=== PATIENT | male | born 1960 | race Native Hawaiian/Other Pacific Islander ===

== ENCOUNTER 2016-07-15 13:55 | Outpatient (CLI) | payer BC ==
[~2016-07-15 13:55] MED LIST: ASA LOW STR81 MG PO; B-650 MG PO; BENICAR20 MG PO; CIPRO500 MG PO; LIPITOR10 MG PO; OMEPRAZOLE20 M1 OR; ZOFRAN8 MG OR
== END 2016-07-15 19:23 | disposition home or self-care (01) ==
LOC: RAD 13:55
DX: J40 Bronchitis, not specified as acute or chronic (principal)

== ENCOUNTER 2016-07-18 09:50 | Observation (INO) | payer BC ==
[~2016-07-18] VITALS: Ht 162.6 cm; Wt 91.2 kg
[2016-07-18 12:02] LABS: PLATELET COUNT 272 K/uL (142-355)
[2016-07-18 12:16] LABS: SODIUM 137 mmol/L (136-145)
[2016-07-18 14:29] VITALS: BP 137/88; TEMP 98.7; Ht 162.6 cm; Wt 91.2 kg
[2016-07-18 16:00] VITALS: BP 155/75; TEMP 98.2
[2016-07-18 20:00] VITALS: BP 148/81; TEMP 98.3
[2016-07-19] VITALS: BP 142/79; TEMP 98.1
[2016-07-19 04:00] VITALS: BP 147/78; TEMP 98.1
[2016-07-19 08:00] VITALS: BP 168/72; TEMP 98
[2016-07-19 12:00] VITALS: BP 154/70; TEMP 97.9
[2016-07-19 16:00] VITALS: BP 151/63; TEMP 98.4
[2016-07-19 20:00] VITALS: BP 131/63; TEMP 98.2
[2016-07-20] VITALS: BP 128/70; TEMP 97.7
[2016-07-20 04:00] VITALS: BP 140/71; TEMP 97.6
[2016-07-20 08:00] VITALS: BP 137/83; TEMP 98.2
[2016-07-20 12:00] VITALS: BP 141/71; TEMP 99.2
[2016-07-20 15:10] LABS: PLATELET COUNT 332 K/uL (142-355)
[2016-07-20 15:25] LABS: POTASSIUM 4.4 mmol/L (3.6-5.2)
[2016-07-20 16:00] VITALS: BP 138/82; TEMP 98.1
--- NOTE | 2016-07-20 17:15 | NUR ---
IV D/C'd. DISCHARGE INSTRUCTIONS SIGNED AND GIVEN. Pt. EXIT OUT OF FRONT ENTRANCE AMBULATING. NO DISTRESS OBSERVED.
== END 2016-07-20 17:15 | disposition home or self-care (01) ==
LOC: MED/SURG 09:50
PROVIDERS: Emergency Medicine; ADMIT Internal Medicine
DX: J18.8 Other pneumonia, unspecified organism (principal); J45.998 Other asthma; R00.0 Tachycardia, unspecified
CPT/HCPCS: 36415; 80053; 82805; 85027; 86738; 87040; 87070; 87205; 87804; 93005; 94640; 94664; 94760; 96365; 96366; 99220; G0378; G0379; J1956

== ENCOUNTER 2016-09-26 14:47 | Outpatient (CLI) | payer BC | END 2016-09-26 19:19 | disposition home or self-care (01) | LOC: US 14:47 | DX: S80.12XA Contusion of left lower leg, initial encounter (principal) ==

== ENCOUNTER 2017-11-03 15:27 | Outpatient (CLI) | payer BC | END 2017-11-03 20:30 | disposition home or self-care (01) | LOC: RAD 15:27 | DX: R05 Cough (principal) ==

== ENCOUNTER 2017-11-25 10:09 | Outpatient (CLI) | payer BC | END 2017-11-25 23:40 | disposition home or self-care (01) | LOC: RESP 10:09 | DX: J84.89 Other specified interstitial pulmonary diseases (principal) ==

== ENCOUNTER 2018-04-09 08:41 | Outpatient (CLI) | payer BC | END 2018-04-09 23:23 | disposition home or self-care (01) | LOC: CT 08:41 | DX: J47.0 Bronchiectasis with acute lower respiratory infection (principal) ==

== ENCOUNTER 2019-01-25 10:36 | Outpatient (CLI) | payer OTHER ==
[2019-01-25 11:24] LABS: PLATELET COUNT 206 K/uL (142-355)
== END 2019-01-25 19:47 | disposition home or self-care (01) ==
LOC: RAD 10:36 → LAB 10:36 → RAD 19:47
PROVIDERS: Internal Medicine
DX: Z00.00 Encounter for general adult medical examination without abnormal findings (principal); M25.552 Pain in left hip
CPT/HCPCS: 36415; 80053; 80061; 81000; 84439; 84443; 85027

== ENCOUNTER 2020-04-03 14:07 | Outpatient (CLI) | payer OTHER | END 2020-04-03 19:49 | disposition home or self-care (01) | LOC: RAD 14:07 | PROVIDERS: ATTEND Internal Medicine | DX: J40 Bronchitis, not specified as acute or chronic (principal) ==

== ENCOUNTER 2020-11-09 08:31 | Outpatient (CLI) | payer OTHER ==
[2020-11-09 08:49] LABS: PLATELET COUNT 169 K/uL (142-355)
[2020-11-09 08:58] LABS: POTASSIUM 3.9 mmol/L (3.6-5.2)
== END 2020-11-09 19:07 | disposition home or self-care (01) ==
LOC: LABW 08:31
PROVIDERS: ATTEND Specialist
DX: Z01.818 Encounter for other preprocedural examination (principal); N43.3 Hydrocele, unspecified
CPT/HCPCS: 36415; 80048; 85027; 93005

== ENCOUNTER 2021-04-19 14:16 | Emergency (ER) | payer OTHER ==
[~2021-04-19] VITALS: Ht 162.6 cm; Wt 97.1 kg
[2021-04-19 14:20] VITALS: TEMP 98.3
[2021-04-19 14:30] LABS: PLATELET COUNT 184 K/uL (142-355)
[2021-04-19 14:38] LABS: POTASSIUM 4.2 mmol/L (3.6-5.2)
[2021-04-19 14:49] LABS: PARTIAL THROMBOPLASTIN TIME 22.7 SECONDS (24.5-33.6)
[2021-04-19 15:00] VITALS: BP 130/76
== END 2021-04-19 16:59 | disposition short-term general hospital (02) ==
LOC: ED 14:16
PROVIDERS: Emergency Medicine Emergency Medical Services
DX: I48.92 Unspecified atrial flutter (principal); Z11.52 Encounter for screening for COVID-19
CPT/HCPCS: 36415; 80053; 82550; 83880; 84484; 85027; 85610; 85730; 87635; 93005; 96360; 96365; 96375; 96376; 99285; J1650; J3490; U0003

== ENCOUNTER 2021-05-21 08:30 | Outpatient (CLI) | payer OTHER ==
[2021-05-21 08:52] LABS: POTASSIUM 4.4 mmol/L (3.6-5.2)
== END 2021-05-21 20:51 | disposition home or self-care (01) ==
LOC: LABW 08:30
PROVIDERS: ATTEND Internal Medicine Cardiovascular Disease
DX: Z79.899 Other long term (current) drug therapy (principal)
CPT/HCPCS: 36415; 80048; 83880

== ENCOUNTER 2022-01-31 15:14 | Outpatient (CLI) | payer OTHER ==
[2022-01-31 17:15] LABS: POTASSIUM 4.2 mmol/L (3.6-5.2)
== END 2022-01-31 19:17 | disposition home or self-care (01) ==
LOC: LABW 15:14
PROVIDERS: ATTEND Internal Medicine Cardiovascular Disease
DX: Z79.899 Other long term (current) drug therapy (principal)
CPT/HCPCS: 36415; 80048; 83880

== ENCOUNTER 2022-07-17 16:05 | Outpatient (CLI) | payer OTHER | END 2022-07-17 23:08 | disposition home or self-care (01) | LOC: RAD 16:05 | PROVIDERS: ATTEND Internal Medicine | DX: T14.8XXA Other injury of unspecified body region, initial encounter (principal); Y92.89 Other specified places as the place of occurrence of the external cause ==

== ENCOUNTER 2023-01-08 12:31 | Day surgery (SDC) | payer OTHER ==
[~2023-01-08] VITALS: Ht 165.1 cm; Wt 68.0 kg
== END 2023-01-08 17:11 | disposition home or self-care (01) ==
LOC: OR 12:31
PROVIDERS: ATTEND Internal Medicine Gastroenterology
PROC: 0DBH8ZX Excision of Cecum, Via Natural or Artificial Opening Endoscopic, Diagnostic (ICD-10-PCS; principal; 2023-01-08)
DX: Z12.11 Encounter for screening for malignant neoplasm of colon (principal); D12.0 Benign neoplasm of cecum; K64.0 First degree hemorrhoids; I11.9 Hypertensive heart disease without heart failure; M19.90 Unspecified osteoarthritis, unspecified site; E78.5 Hyperlipidemia, unspecified; Z88.8 Allergy status to other drugs, medicaments and biological substances
CPT/HCPCS: J2704; J7120